=== PATIENT | male | born 1960 | race Hispanic/Latino ===

== ENCOUNTER 2024-10-15 10:59 | Inpatient (IN) | payer SELFPAY ==
[2024-10-15] VITALS (8 sets, daily range): BP systolic 96–156; BP diastolic 71–92; PULSE 100–109; RESP 16–18; TEMP 97.3–98.4; O2SAT 97–100
[~2024-10-15] VITALS: Ht 172.7 cm; Wt 86.2 kg
[2024-10-15] MEDS ORDERED: SODIUM CHLORIDE 0.9% 100 ML ONE (14:01)
[2024-10-15] MEDS ORDERED: IOPAMIDOL 370 MG/ML 100 ML INFUS..BTL INJ ONE (14:01)
[2024-10-15] MEDS ORDERED: CEFTRIAXONE 1 GM VIAL IV ONE (15:30)
[2024-10-15] MEDS: ENOXAPARIN SOD INJ 60 MG/0.6 ML SYR SC STA (16:31)
[2024-10-15] MEDS: ENOXAPARIN SODIUM INJ 100 MG/ML SYR SC STA (16:38)
[2024-10-15] MEDS: FUROSEMIDE INJ 10 MG/ML 4 ML VIAL IV SCH (16:38)
[2024-10-16] VITALS (10 sets, daily range): BP systolic 99–110; BP diastolic 81–90; PULSE 97–106; RESP 18–20; TEMP 97.5–98; O2SAT 93–100
[2024-10-16] MEDS: ENOXAPARIN SODIUM INJ 100 MG/ML SYR SC SCH (03:52)
[2024-10-16 08:35] LABS: TROPONIN I 0.014 ng/mL (0-0.300)
[2024-10-16 12:55] LABS: ANION GAP 19.2 mmol/L (8-16); CREATININE, SERUM 1.26 mg/dL (0.72-1.25); POTASSIUM 4.2 mmol/L (3.5-5.1)
[2024-10-16 12:56] LABS: CALCIUM 9.7 mg/dL (8.4-10.2)
[2024-10-16 15:57] LABS: TROPONIN I 0.019 ng/mL (0-0.300)
[2024-10-16] MEDS: FAMOTIDINE 20 MG TAB PO SCH (17:23)
[2024-10-17] VITALS (42 sets, daily range): BP systolic 56–158; BP diastolic 36–97; PULSE 25–116; RESP 10–29; TEMP 97.4–98.2; O2SAT 95–100
[2024-10-17 05:24] LABS: BASOPHILS # (AUTO) 0.1 (0.0-0.1); BASOPHILS % 1.2 % (0.0-1.0); EOSINOPHILS # (AUTO) 0.1 (0.0-0.4); EOSINOPHILS % 0.7 % (0.0-6.0); HEMATOCRIT 45.5 % (38.2-49.6); HEMOGLOBIN 14.6 g/dL (14.0-18.0); LYMPHOCYTES # (AUTO) 1.1 (1.0-3.2); MEAN CORPUSCULAR HEMOGLOBIN 30.9 pg (28-32); MEAN CORPUSCULAR HGB CONC 32.1 g/dL (31-35); MEAN CORPUSCULAR VOLUME 96.4 fL (81-99); MONOCYTES # (AUTO) 1.1 (0.2-0.8); MONOCYTES % 15.3 % (4.4-11.3); NEUTROPHILS # (AUTO) 4.6 (2.1-6.9); NEUTROPHILS % 66.2 % (38.7-80.0); PLATELET COUNT 101 x10e3/uL (140-360); RED BLOOD COUNT 4.72 x10e6/uL (4.3-5.7); RED CELL DISTRIBUTION WIDTH 13.8 % (11.7-14.4); WHITE BLOOD COUNT 6.95 x10e3/uL (4.8-10.8)
[2024-10-17 05:53] LABS: ANION GAP 17.2 mmol/L (8-16); CALCIUM 9.1 mg/dL (8.4-10.2); CREATININE, SERUM 1.5 mg/dL (0.72-1.25); POTASSIUM 4.2 mmol/L (3.5-5.1)
[2024-10-17 06:24] LABS: TROPONIN I 0.017 ng/mL (0-0.300)
[2024-10-17] MEDS: LOSARTAN POTASSIUM 25 MG TAB PO SCH (08:20)
[2024-10-17] MEDS: CARVEDILOL 3.125 MG TAB PO SCH (08:20)
[2024-10-17] MEDS ORDERED: SODIUM CHLORIDE 0.9% 1000ML 1,000 ML IV SCH (11:45)
[2024-10-17] MEDS ORDERED: EPINEPHRINE HCL SYRINGE ONE (12:40)
[2024-10-17] MEDS ORDERED: SODIUM CHLORIDE 0.9% INJ 250 ML BAG ONE (12:40)
[2024-10-17] MEDS ORDERED: NOREPINEPHRINE INJ 4 MG/4 ML ONE (12:40)
[2024-10-17 14:54] LABS: BASOPHILS # (AUTO) 0.1 (0.0-0.1); EOSINOPHILS # (AUTO) 0.1 (0.0-0.4); EOSINOPHILS % 1.1 % (0.0-6.0); HEMATOCRIT 50.3 % (38.2-49.6); HEMOGLOBIN 15.5 g/dL (14.0-18.0); LYMPHOCYTES # (AUTO) 2.2 (1.0-3.2); LYMPHOCYTES % 28.1 % (18.0-39.1); MEAN CORPUSCULAR HGB CONC 30.8 g/dL (31-35); MEAN CORPUSCULAR VOLUME 100.6 fL (81-99); MONOCYTES % 12.2 % (4.4-11.3); NEUTROPHILS # (AUTO) 4.5 (2.1-6.9); NEUTROPHILS % 56.8 % (38.7-80.0); PLATELET COUNT 99 x10e3/uL (140-360); RED CELL DISTRIBUTION WIDTH 14.2 % (11.7-14.4); WHITE BLOOD COUNT 7.98 x10e3/uL (4.8-10.8)
[2024-10-17 15:18] LABS: ALBUMIN 3.3 g/dL (3.5-5.0); ANION GAP 20.5 mmol/L (8-16); BILIRUBIN,TOTAL 0.9 mg/dL (0.2-1.2); CALCIUM 8.5 mg/dL (8.4-10.2); CREATININE, SERUM 1.68 mg/dL (0.72-1.25); POTASSIUM 4.5 mmol/L (3.5-5.1); TOTAL PROTEIN 6.6 g/dL (6.5-8.1)
[2024-10-17] MEDS: SODIUM CHLORIDE 0.9% 1000ML 1,000 ML ONE (15:53)
[2024-10-17] MEDS: NOREPINEPHRINE 8 MG/D5W 250 ML 250 ML IV SCH (16:00)
[2024-10-17] MEDS: METFORMIN HCL 500 MG TAB PO SCH (16:08)
[2024-10-17] MEDS ORDERED: ONDANSETRON HCL INJ 2MG/ML 2ML 2 MG/ML VIAL IV PRN (16:30)
[2024-10-17] MEDS: INSULIN REGULAR, HUMAN 100 UNIT/1 ML SQ SCH (16:57)
[2024-10-17] MEDS: GLIPIZIDE 5 MG TAB PO SCH (20:36)
[2024-10-18] VITALS (97 sets, daily range): BP systolic 59–121; BP diastolic 45–97; PULSE 65–110; RESP 0–29; TEMP 97.7–98.4; O2SAT 68–100
[2024-10-18 07:09] LABS: BASOPHILS # (AUTO) 0.1 (0.0-0.1); BASOPHILS % 0.7 % (0.0-1.0); EOSINOPHILS % 0.2 % (0.0-6.0); HEMATOCRIT 48.5 % (38.2-49.6); HEMOGLOBIN 15.5 g/dL (14.0-18.0); LYMPHOCYTES % 11.1 % (18.0-39.1); MEAN CORPUSCULAR HEMOGLOBIN 31.1 pg (28-32); MONOCYTES # (AUTO) 1.2 (0.2-0.8); MONOCYTES % 13.6 % (4.4-11.3); NEUTROPHILS # (AUTO) 6.6 (2.1-6.9); NEUTROPHILS % 73.4 % (38.7-80.0); PLATELET COUNT 114 x10e3/uL (140-360); RED BLOOD COUNT 4.99 x10e6/uL (4.3-5.7); RED CELL DISTRIBUTION WIDTH 13.6 % (11.7-14.4); WHITE BLOOD COUNT 8.92 x10e3/uL (4.8-10.8)
[2024-10-18 07:11] LABS: MEAN CORPUSCULAR VOLUME 97.2 fL (81-99)
[2024-10-18 07:43] LABS: ANION GAP 17.3 mmol/L (8-16); CALCIUM 9.3 mg/dL (8.4-10.2); CREATININE, SERUM 1.62 mg/dL (0.72-1.25); POTASSIUM 4.3 mmol/L (3.5-5.1)
[2024-10-18] MEDS: MAGNESIUM/ALUMINUM/SIMETHICONE 30 ML UDC PO PRN (13:47)
[2024-10-19] VITALS (92 sets, daily range): BP systolic 75–117; BP diastolic 49–93; PULSE 44–170; RESP 0–26; TEMP 96.8–98.4; O2SAT 89–100
[2024-10-19 06:56] LABS: BASOPHILS # (AUTO) 0.1 (0.0-0.1); BASOPHILS % 0.8 % (0.0-1.0); EOSINOPHILS # (AUTO) 0.1 (0.0-0.4); EOSINOPHILS % 0.6 % (0.0-6.0); HEMATOCRIT 45.5 % (38.2-49.6); HEMOGLOBIN 15.4 g/dL (14.0-18.0); LYMPHOCYTES # (AUTO) 0.9 (1.0-3.2); LYMPHOCYTES % 10.4 % (18.0-39.1); MEAN CORPUSCULAR HEMOGLOBIN 31.2 pg (28-32); MEAN CORPUSCULAR HGB CONC 33.8 g/dL (31-35); MONOCYTES # (AUTO) 1.1 (0.2-0.8); MONOCYTES % 12.4 % (4.4-11.3); NEUTROPHILS # (AUTO) 6.4 (2.1-6.9); PLATELET COUNT 143 x10e3/uL (140-360); RED BLOOD COUNT 4.94 x10e6/uL (4.3-5.7); RED CELL DISTRIBUTION WIDTH 14.4 % (11.7-14.4); WHITE BLOOD COUNT 8.54 x10e3/uL (4.8-10.8)
[2024-10-19 07:00] LABS: MEAN CORPUSCULAR VOLUME 92.1 fL (81-99)
[2024-10-19 07:22] LABS: ALBUMIN 3.2 g/dL (3.5-5.0); ALBUMIN/GLOBULIN RATIO 1.1 (0.8-2.0); BILIRUBIN,TOTAL 0.9 mg/dL (0.2-1.2); CALCIUM 8.9 mg/dL (8.4-10.2); CREATININE, SERUM 1.47 mg/dL (0.72-1.25)
[2024-10-19] MEDS ORDERED: MIDODRINE 2.5 MG TAB PO SCH ×2 (12:30→16:00)
[2024-10-19] MEDS: MIDODRINE HCL 5 MG TABLET PO SCH (12:39)
[2024-10-19] MEDS: SODIUM CHLORIDE 0.9% 250ML 250 ML ONE (12:52)
[2024-10-19] MEDS: NOREPINEPHRINE 8 MG/D5W 250 ML 250 ML IV SCH (15:30)
[2024-10-20] VITALS (80 sets, daily range): BP systolic 51–119; BP diastolic 11–91; PULSE 40–98; RESP 10–36; TEMP 97.3–97.8; O2SAT 74–100
[2024-10-20 06:43] LABS: BASOPHILS # (AUTO) 0.1 (0.0-0.1); BASOPHILS % 0.9 % (0.0-1.0); EOSINOPHILS # (AUTO) 0.1 (0.0-0.4); EOSINOPHILS % 1.2 % (0.0-6.0); HEMATOCRIT 44.6 % (38.2-49.6); HEMOGLOBIN 14.8 g/dL (14.0-18.0); LYMPHOCYTES % 15.2 % (18.0-39.1); MEAN CORPUSCULAR HEMOGLOBIN 30.6 pg (28-32); MEAN CORPUSCULAR HGB CONC 33.2 g/dL (31-35); MEAN CORPUSCULAR VOLUME 92.3 fL (81-99); MONOCYTES % 14.8 % (4.4-11.3); NEUTROPHILS # (AUTO) 4.5 (2.1-6.9); NEUTROPHILS % 67.2 % (38.7-80.0); RED BLOOD COUNT 4.83 x10e6/uL (4.3-5.7); RED CELL DISTRIBUTION WIDTH 14.6 % (11.7-14.4)
[2024-10-20 06:47] LABS: PLATELET COUNT 113 x10e3/uL (140-360)
[2024-10-20 07:14] LABS: ANION GAP 16.7 mmol/L (8-16); CALCIUM 9.2 mg/dL (8.4-10.2); CREATININE, SERUM 1.81 mg/dL (0.72-1.25); POTASSIUM 4.7 mmol/L (3.5-5.1)
[2024-10-20] MEDS: NOREPINEPHRINE 8 MG/D5W 250 ML 250 ML IV SCH (15:00)
[2024-10-21] VITALS (96 sets, daily range): BP systolic 78–133; BP diastolic 55–104; PULSE 71–97; RESP 0–26; TEMP 97.8–98.4; O2SAT 97–100
[2024-10-21 09:36] LABS: BASOPHILS # (AUTO) 0.1 (0.0-0.1); EOSINOPHILS % 0.5 % (0.0-6.0); HEMATOCRIT 45.8 % (38.2-49.6); HEMOGLOBIN 15.4 g/dL (14.0-18.0); LYMPHOCYTES % 12.7 % (18.0-39.1); MEAN CORPUSCULAR HEMOGLOBIN 30.8 pg (28-32); MEAN CORPUSCULAR HGB CONC 33.6 g/dL (31-35); MEAN CORPUSCULAR VOLUME 91.6 fL (81-99); MONOCYTES # (AUTO) 1.2 (0.2-0.8); NEUTROPHILS # (AUTO) 5.7 (2.1-6.9); NEUTROPHILS % 69.7 % (38.7-80.0); PLATELET COUNT 117 x10e3/uL (140-360); RED CELL DISTRIBUTION WIDTH 14.6 % (11.7-14.4); WHITE BLOOD COUNT 8.13 x10e3/uL (4.8-10.8)
[2024-10-21 10:01] LABS: ALBUMIN 3.5 g/dL (3.5-5.0); ALBUMIN/GLOBULIN RATIO 1.3 (0.8-2.0); ANION GAP 18.3 mmol/L (8-16); BILIRUBIN,TOTAL 1.3 mg/dL (0.2-1.2); CALCIUM 9.1 mg/dL (8.4-10.2); CREATININE, SERUM 2.09 mg/dL (0.72-1.25); TOTAL PROTEIN 6.2 g/dL (6.5-8.1)
[2024-10-21 10:07] LABS: POTASSIUM 5.3 mmol/L (3.5-5.1)
[2024-10-22] VITALS (79 sets, daily range): BP systolic 86–130; BP diastolic 67–96; PULSE 73–90; RESP 0–27; TEMP 97.8–98.9; O2SAT 95–100
[2024-10-22] MEDS: DEXTROSE 50% SYRINGE 50 ML IV PRN (07:18)
[2024-10-22 17:18] LABS: BASOPHILS # (AUTO) 0.1 (0.0-0.1); BASOPHILS % 0.7 % (0.0-1.0); EOSINOPHILS # (AUTO) 0.1 (0.0-0.4); EOSINOPHILS % 1.2 % (0.0-6.0); HEMOGLOBIN 14.3 g/dL (14.0-18.0); LYMPHOCYTES % 13.3 % (18.0-39.1); MEAN CORPUSCULAR HGB CONC 33.3 g/dL (31-35); MEAN CORPUSCULAR VOLUME 93.3 fL (81-99); MONOCYTES # (AUTO) 1.2 (0.2-0.8); MONOCYTES % 15.3 % (4.4-11.3); NEUTROPHILS # (AUTO) 5.3 (2.1-6.9); NEUTROPHILS % 69.1 % (38.7-80.0); PLATELET COUNT 91 x10e3/uL (140-360); RED BLOOD COUNT 4.61 x10e6/uL (4.3-5.7); RED CELL DISTRIBUTION WIDTH 14.8 % (11.7-14.4); WHITE BLOOD COUNT 7.67 x10e3/uL (4.8-10.8)
[2024-10-22 17:37] LABS: ALBUMIN 3.2 g/dL (3.5-5.0); ALBUMIN/GLOBULIN RATIO 1.1 (0.8-2.0); ANION GAP 16.7 mmol/L (8-16); CALCIUM 8.6 mg/dL (8.4-10.2); CREATININE, SERUM 1.8 mg/dL (0.72-1.25); POTASSIUM 4.7 mmol/L (3.5-5.1)
[2024-10-23] VITALS (46 sets, daily range): BP systolic 82–119; BP diastolic 60–97; PULSE 64–94; RESP 0–23; TEMP 97.9–98.4; O2SAT 92–99
[2024-10-23 06:37] LABS: BASOPHILS % 0.7 % (0.0-1.0); EOSINOPHILS # (AUTO) 0.1 (0.0-0.4); EOSINOPHILS % 2.1 % (0.0-6.0); HEMATOCRIT 40.4 % (38.2-49.6); HEMOGLOBIN 13.5 g/dL (14.0-18.0); LYMPHOCYTES % 16.1 % (18.0-39.1); MEAN CORPUSCULAR HEMOGLOBIN 30.8 pg (28-32); MEAN CORPUSCULAR HGB CONC 33.4 g/dL (31-35); MEAN CORPUSCULAR VOLUME 92.2 fL (81-99); MONOCYTES % 16.6 % (4.4-11.3); NEUTROPHILS # (AUTO) 3.9 (2.1-6.9); NEUTROPHILS % 63.8 % (38.7-80.0); PLATELET COUNT 86 x10e3/uL (140-360); RED BLOOD COUNT 4.38 x10e6/uL (4.3-5.7); RED CELL DISTRIBUTION WIDTH 14.6 % (11.7-14.4); WHITE BLOOD COUNT 6.09 x10e3/uL (4.8-10.8)
[2024-10-23 07:04] LABS: ALBUMIN 3.1 g/dL (3.5-5.0); ALBUMIN/GLOBULIN RATIO 1.1 (0.8-2.0); ANION GAP 15.2 mmol/L (8-16); BILIRUBIN,TOTAL 0.9 mg/dL (0.2-1.2); CALCIUM 8.6 mg/dL (8.4-10.2); CREATININE, SERUM 1.61 mg/dL (0.72-1.25); POTASSIUM 4.2 mmol/L (3.5-5.1); TOTAL PROTEIN 5.9 g/dL (6.5-8.1)
[2024-10-23] MEDS: SODIUM CHLORIDE 0.9% 100 ML ONE (12:07)
[2024-10-23] MEDS: ENOXAPARIN INJ 80 MG/0.8 ML SYR SC SCH (17:10)
[2024-10-23] MEDS: FUROSEMIDE INJ 10 MG/ML 4 ML VIAL IV ONE (18:09)
[2024-10-24] VITALS (23 sets, daily range): BP systolic 83–121; BP diastolic 72–95; PULSE 75–95; RESP 12–21; TEMP 97.5–98.4; O2SAT 90–100
[2024-10-24 08:00] LABS: ANION GAP 15.2 mmol/L (8-16); CALCIUM 8.7 mg/dL (8.4-10.2); CREATININE, SERUM 1.68 mg/dL (0.72-1.25); MAGNESIUM 1.9 MG/DL (1.3-2.1); POTASSIUM 4.2 mmol/L (3.5-5.1)
[2024-10-24] MEDS: MUPIROCIN 2% OINT 22 GM TUBE TOP SCH (16:47)
[2024-10-25] VITALS (9 sets, daily range): BP systolic 102–110; BP diastolic 81–87; PULSE 76–97; RESP 17–20; TEMP 97.8–98.5; O2SAT 98–100
[2024-10-25 07:36] LABS: BASOPHILS % 0.6 % (0.0-1.0); EOSINOPHILS # (AUTO) 0.1 (0.0-0.4); HEMATOCRIT 43.9 % (38.2-49.6); HEMOGLOBIN 14.4 g/dL (14.0-18.0); LYMPHOCYTES # (AUTO) 0.8 (1.0-3.2); LYMPHOCYTES % 11.5 % (18.0-39.1); MEAN CORPUSCULAR HEMOGLOBIN 31.1 pg (28-32); MEAN CORPUSCULAR HGB CONC 32.8 g/dL (31-35); MEAN CORPUSCULAR VOLUME 94.8 fL (81-99); MONOCYTES # (AUTO) 1.3 (0.2-0.8); MONOCYTES % 18.4 % (4.4-11.3); NEUTROPHILS # (AUTO) 4.7 (2.1-6.9); NEUTROPHILS % 66.9 % (38.7-80.0); PLATELET COUNT 102 x10e3/uL (140-360); RED BLOOD COUNT 4.63 x10e6/uL (4.3-5.7); RED CELL DISTRIBUTION WIDTH 15.2 % (11.7-14.4); WHITE BLOOD COUNT 7.06 x10e3/uL (4.8-10.8)
[2024-10-25 07:52] LABS: ANION GAP 14.7 mmol/L (8-16); CALCIUM 8.5 mg/dL (8.4-10.2); CREATININE, SERUM 1.44 mg/dL (0.72-1.25); POTASSIUM 4.7 mmol/L (3.5-5.1)
[2024-10-25] MEDS: APIXABAN 5 MG TABLET PO SCH (17:27)
[2024-10-26] VITALS (8 sets, daily range): BP systolic 101–113; BP diastolic 80–91; PULSE 86–101; RESP 17–20; TEMP 97.2–98.1; O2SAT 98–100
[2024-10-26 06:42] LABS: BASOPHILS # (AUTO) 0.1 (0.0-0.1); EOSINOPHILS # (AUTO) 0.2 (0.0-0.4); EOSINOPHILS % 2.2 % (0.0-6.0); HEMATOCRIT 43.7 % (38.2-49.6); HEMOGLOBIN 14.3 g/dL (14.0-18.0); LYMPHOCYTES # (AUTO) 0.9 (1.0-3.2); LYMPHOCYTES % 13.7 % (18.0-39.1); MEAN CORPUSCULAR HGB CONC 32.7 g/dL (31-35); MEAN CORPUSCULAR VOLUME 94.6 fL (81-99); MONOCYTES # (AUTO) 1.1 (0.2-0.8); MONOCYTES % 16.1 % (4.4-11.3); NEUTROPHILS # (AUTO) 4.4 (2.1-6.9); NEUTROPHILS % 66.1 % (38.7-80.0); PLATELET COUNT 112 x10e3/uL (140-360); RED BLOOD COUNT 4.62 x10e6/uL (4.3-5.7); RED CELL DISTRIBUTION WIDTH 15.2 % (11.7-14.4); WHITE BLOOD COUNT 6.72 x10e3/uL (4.8-10.8)
[2024-10-26 07:04] LABS: ANION GAP 12.9 mmol/L (8-16); CALCIUM 8.4 mg/dL (8.4-10.2); CREATININE, SERUM 1.22 mg/dL (0.72-1.25); POTASSIUM 3.9 mmol/L (3.5-5.1)
[2024-10-26 07:27] LABS: THYROID STIMULATING HORMONE 3.875 uIU/mL (0.350-4.940)
[2024-10-27] VITALS (8 sets, daily range): BP systolic 104–109; BP diastolic 78–90; PULSE 70–92; RESP 17–20; TEMP 97.1–98; O2SAT 97–100
[2024-10-27 06:40] LABS: BASOPHILS # (AUTO) 0.1 (0.0-0.1); BASOPHILS % 0.8 % (0.0-1.0); EOSINOPHILS # (AUTO) 0.2 (0.0-0.4); EOSINOPHILS % 3.4 % (0.0-6.0); HEMATOCRIT 42.7 % (38.2-49.6); HEMOGLOBIN 14.1 g/dL (14.0-18.0); LYMPHOCYTES # (AUTO) 1.2 (1.0-3.2); MEAN CORPUSCULAR HEMOGLOBIN 31.1 pg (28-32); MEAN CORPUSCULAR VOLUME 94.3 fL (81-99); MONOCYTES % 16.3 % (4.4-11.3); NEUTROPHILS # (AUTO) 3.7 (2.1-6.9); NEUTROPHILS % 59.9 % (38.7-80.0); PLATELET COUNT 107 x10e3/uL (140-360); RED BLOOD COUNT 4.53 x10e6/uL (4.3-5.7); RED CELL DISTRIBUTION WIDTH 15.1 % (11.7-14.4); WHITE BLOOD COUNT 6.25 x10e3/uL (4.8-10.8)
[2024-10-27 07:11] LABS: ANION GAP 14.1 mmol/L (8-16); CALCIUM 8.7 mg/dL (8.4-10.2); CREATININE, SERUM 1.39 mg/dL (0.72-1.25); POTASSIUM 4.1 mmol/L (3.5-5.1)
[2024-10-28 00:24] VITALS: BP 108/83; PULSE 90; RESP 18; TEMP 97.4; O2SAT 95
[2024-10-28 04:25] VITALS: BP 112/86; PULSE 88; RESP 17; TEMP 97.7; O2SAT 98
[2024-10-28 08:00] VITALS: BP 111/87; PULSE 93; RESP 18; TEMP 97.7; O2SAT 94
[2024-10-28 09:00] VITALS: BP 111/87; PULSE 93; RESP 18; TEMP 97.7; O2SAT 94
[2024-10-28 12:00] VITALS: BP 103/81; PULSE 89; RESP 18; TEMP 98.2; O2SAT 100
[2024-10-28 16:00] VITALS: BP 113/85; PULSE 82; RESP 17; TEMP 97.5; O2SAT 96
[2024-10-28] MEDS: FUROSEMIDE 40 MG TAB PO SCH (17:36)
[2024-10-29] VITALS (7 sets, daily range): BP systolic 98–121; BP diastolic 78–92; PULSE 81–91; RESP 16–19; TEMP 97.5–98.6; O2SAT 96–100
[2024-10-29 06:46] LABS: ANION GAP 17.8 mmol/L (8-16); CALCIUM 8.7 mg/dL (8.4-10.2); CREATININE, SERUM 1.66 mg/dL (0.72-1.25); POTASSIUM 4.8 mmol/L (3.5-5.1)
[2024-10-30] VITALS: BP 115/87; PULSE 91; RESP 18; TEMP 97; O2SAT 100
[2024-10-30 04:00] VITALS: BP 98/84; PULSE 83; RESP 18; TEMP 97.5; O2SAT 100
[2024-10-30 06:57] LABS: ANION GAP 16.9 mmol/L (8-16); CALCIUM 8.9 mg/dL (8.4-10.2); CREATININE, SERUM 1.89 mg/dL (0.72-1.25); POTASSIUM 4.9 mmol/L (3.5-5.1)
[2024-10-30 08:00] VITALS: BP 101/80; PULSE 82; RESP 18; TEMP 97.7; O2SAT 100
[2024-10-30 12:00] VITALS: BP 100/85; PULSE 81; RESP 17; TEMP 97.8; O2SAT 99
[2024-10-30] MEDS ORDERED: MIDODRINE HCL5 MG PO (14:30)
[2024-10-30] MEDS ORDERED: METFORMIN HCL500 MG PO (14:30)
[2024-10-30] MEDS ORDERED: ELIQUIS5 MG PO (14:30)
[2024-10-30] MEDS ORDERED: FAMOTIDINE20 MG PO (14:30)
[2024-10-30] MEDS ORDERED: FUROSEMIDE40 MG PO (14:30)
== END 2024-10-30 15:25 | disposition home or self-care (01) | DRG 291 ==
LOC: FSED 11:33 → ERHOLD 16:18 → MED/SURG 18:06 → ICU 10-17 15:09 → MED/SURG3 10-24 17:35
PROVIDERS: ADMIT Internal Medicine; ATTEND Internal Medicine
PROC: 02HV33Z Insertion of Infusion Device into Superior Vena Cava, Percutaneous Approach (ICD-10-PCS; principal; 2024-10-17)
PROC: 5A2204Z Restoration of Cardiac Rhythm, Single (ICD-10-PCS; 2024-10-17)
PROC: 3E033XZ Introduction of Vasopressor into Peripheral Vein, Percutaneous Approach (ICD-10-PCS; 2024-10-17)
PROC: 3E0333Z Introduction of Anti-inflammatory into Peripheral Vein, Percutaneous Approach (ICD-10-PCS; 2024-10-17)
DX: I50.23 Acute on chronic systolic (congestive) heart failure (principal); I46.9 Cardiac arrest, cause unspecified; J18.9 Pneumonia, unspecified organism; R65.21 Severe sepsis with septic shock; I27.82 Chronic pulmonary embolism; N39.0 Urinary tract infection, site not specified; E87.20 Acidosis, unspecified; N17.9 Acute kidney failure, unspecified; T50.2X5A Adverse effect of carbonic-anhydrase inhibitors, benzothiadiazides and other diuretics, initial encounter; D69.6 Thrombocytopenia, unspecified; E11.65 Type 2 diabetes mellitus with hyperglycemia; R53.81 Other malaise; Z79.84 Long term (current) use of oral hypoglycemic drugs; Z87.891 Personal history of nicotine dependence
CPT/HCPCS: 36415; 71045; 71046; 71260; 76770; 80048; 80053; 82550; 82948; 83735; 83880; 84100; 84443; 84484; 85025; 92950; 93005; 93306; 93970; 94799; 95812; 96372; 99252; 99284; J0171; J0696; J1650; J1940; J7030; J7050; J7799; Q9967